=== PATIENT | female | born 1950 | race Two or more races ===

== ENCOUNTER 2020-08-29 05:12 | Day surgery (SDC) | payer OTHER ==
[2020-08-29] MEDS ORDERED: PERCOCET 5-3251 EACH PO (08:29)
[2020-08-29] MEDS ORDERED: RECTICARE30 GM TOP (08:30)
== END 2020-08-29 12:05 | disposition home or self-care (01) ==
LOC: CIR.AMB 05:12
PROVIDERS: ATTEND Surgery
DX: C20 Malignant neoplasm of rectum (principal); Z20.822 Contact with and (suspected) exposure to COVID-19

== ENCOUNTER 2021-03-14 08:45 | Inpatient (IN) | payer OTHER ==
[~2021-03-14] VITALS: Ht 162.6 cm; Wt 59.0 kg
[~2021-03-14 08:45] MED LIST: PERCOCET 5-3251 EACH PO; RECTICARE30 GM TOP
[2021-03-20] MEDS ORDERED: HYOSCYAMINE0.125 M1 SL (09:06)
[2021-03-20] MEDS ORDERED: OXYC1TAB9 PO (09:07)
== END 2021-03-20 13:01 | disposition home or self-care (01) | DRG 330 ==
LOC: ADM 08:45 → EDSTATUS 08:45 → O/R 03-17 08:37 → SURH 03-17 08:45
PROVIDERS: ADMIT Surgery; ATTEND Surgery
PROC: 0DTP4ZZ Resection of Rectum, Percutaneous Endoscopic Approach (ICD-10-PCS; 2021-03-17)
PROC: 0DTQ4ZZ Resection of Anus, Percutaneous Endoscopic Approach (ICD-10-PCS; 2021-03-17)
PROC: 07BC4ZX Excision of Pelvis Lymphatic, Percutaneous Endoscopic Approach, Diagnostic (ICD-10-PCS; 2021-03-17)
PROC: 3E0F7SF Introduction of Other Gas into Respiratory Tract, Via Natural or Artificial Opening (ICD-10-PCS; 2021-03-17)
PROC: 0DTN4ZZ Resection of Sigmoid Colon, Percutaneous Endoscopic Approach (ICD-10-PCS; principal; 2021-03-17 11:00)
DX: C20 Malignant neoplasm of rectum (principal); K92.1 Melena; Z20.822 Contact with and (suspected) exposure to COVID-19